=== PATIENT | male | born 1995 | race Two or more races ===

== ENCOUNTER 2024-01-03 11:42 | Emergency (ER) | payer BC, OTHER ==
[~2024-01-03] VITALS: Ht 175.3 cm; Wt 79.5 kg
[2024-01-03] MEDS: KETOROLAC TROMETH 60MG/2ML VIAL IM ONE (12:41)
[2024-01-03] MEDS: HYDROcodone-ACET 5/325MG TAB PO ONE (12:42)
[2024-01-03 13:40] VITALS: BP 130/91; PULSE 86; RESP 20; TEMP 98.4; O2SAT 96
[2024-01-03] MEDS ORDERED: TRAM-626 PO (13:40)
[2024-01-03] MEDS ORDERED: PRED20TA2 PO (13:40)
== END 2024-01-03 13:53 | disposition home or self-care (01) ==
LOC: ER 11:46
DX: G89.4 Chronic pain syndrome (principal); M51.16 Intervertebral disc disorders with radiculopathy, lumbar region; Z79.52 Long term (current) use of systemic steroids; Z79.1 Long term (current) use of non-steroidal anti-inflammatories (NSAID)
CPT/HCPCS: 72100; 96372; 99283; J1885